=== PATIENT | female | born 1995 | race Caucasian/White ===

== ENCOUNTER 2020-04-01 21:29 | Emergency (ER) | payer BC ==
[~2020-04-01] VITALS: Ht 167.6 cm; Wt 59.0 kg
[2020-04-01 21:56] VITALS: BP 121/87
--- NOTE | 2020-04-01 21:56 | NUR ---
ED Nurse Note: pt ambulated into ed from home CO lower abdominal pain with nausea 10/10 x 3 hours. Pt states she was recently seen at an urgent care earlier today and was instructed to visit an ER d/t lack of equipment at urgent care facility. Pt aao x 4, ambulates with steady gait, skin intact. Pt states she also has mild GORD[place]O. Awaiting ERMD at bedside. UA sent to lab
--- NOTE | 2020-04-01 22:10 | NUR ---
ED Nurse Note: IV line initiated, blood drawn and sent to lab. All medications administered at this time, VSS no ss of distress noted. Will continue to monitor.
--- NOTE | 2020-04-01 22:20 | NUR ---
ED Nurse Note: ERMD at bedside
--- NOTE | 2020-04-01 22:30 | Emergency Room Report ---
History of Present Illness General Chief Complaint: Abdominal Pain Source: Patient Present Illness HPI Disclaimer: Please note that this report is being documented using [employer] technology. This can lead to erroneous entry secondary to incorrect interpretation by the dictating instrument. HPI: 25-year-old female presents for evaluation of nausea and abdominal cramping. Symptoms began approximately 6 hours ago. Denies any new food, vomiting, diarrhea, fever, chills, shortness of breath, cough, sore throat, dysuria, hematuria. She notes mild aching in the lower back. Denies vaginal bleeding or vaginal discharge. LMP 4 days ago. No other coworkers or cohabitant's or experiencing similar symptoms. No prior history of abdominal surgery. Reports a moderate headache but has been ongoing intermittently for the past week. Responds well to NSAIDs. 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 EOMI. Cardiovascular: RRR. S1 and S2 normal. No murmur appreciated Resp: Normal work of breathing. No cough, wheezing or crackles appreciated Abdomen: Abdomen is soft, nondistended. Mild tenderness in the epigastrium without guarding. No significant tenderness in the left or right upper quadrants, negative Samaniego's, no tenderness in the lower quadrants or suprapubic region. No rebound. No flank tenderness. Skin: Intact. No abrasions, laceration or rash over the exposed skin MSK: Normal tone and bulk. Moving all extremities. No obvious deformity. Neuro: Awake and alert. Mentating appropriately. Medical Decision Making Diagnostic Impression: Primary Impression: Abdominal pain ER Course 25-year-old female presents for evaluation of 6 hours abdominal cramping and nausea. Differential includes was not limited to gastritis, gastroenteritis, pancreatitis, cholecystitis, food poisoning, UTI, pyelonephritis among others. Patient has been taking NSAIDs for intermittent headache and may experiencing some gastritis from the excess ibuprofen. EKG unremarkable. Labs returned within normal limits. Patient no longer complaining of abdominal discomfort or nausea. She will be discharged with Zofran and started on famotidine. Counseled her on proper dosing of NSAIDs and she was given Tylenol in the ED. Discussed need to follow-up with clinic and to return to the emergency department new or worsening symptoms. She understands agrees with this treatment plan will be discharged home. Laboratory Tests Test 04/01/20 21:58 04/01/20 22:08 Urine Color Pale yellow Urine Appearance Clear Urine pH 7 (4.5-8.0) Urine Specific [place] 1.010 (1.005-1.035) Urine Protein Negative (NEGATIVE) Urine Glucose (UA) Negative (NEGATIVE) Urine Ketones Negative (NEGATIVE) Urine Blood Negative (NEGATIVE) Urine Nitrite Negative (NEGATIVE) Urine Bilirubin Negative (NEGATIVE) Urine Urobilinogen Normal MG/DL (0.0-1.0) Urine Leukocyte Esterase Negative (NEGATIVE) Urine HCG, Qualitative Negative (NEGATIVE) White Blood Count 9.0 K/UL (4.8-10.8) Red Blood Count 4.51 M/UL (4.20-5.40) Hemoglobin 14.0 G/DL (12.0-16.0) Hematocrit 41.0 % (37.0-47.0) Mean Corpuscular Volume 91 FL (80-99) Mean Corpuscular Hemoglobin 31.0 PG (27.0-31.0) Mean Corpuscular Hemoglobin Concent 34.1 G/DL (32.0-36.0) Red Cell Distribution Width 11.5 % (11.6-14.8) L Platelet Count 392 K/UL (150-450) Mean Platelet Volume 6.5 FL (6.5-10.1) Neutrophils (%) (Auto) 54.0 % (45.0-75.0) Lymphocytes (%) (Auto) 31.2 % (20.0-45.0) Monocytes (%) (Auto) 11.4 % (1.0-10.0) H Eosinophils (%) (Auto) 2.0 % (0.0-3.0) Basophils (%) (Auto) 1.4 % (0.0-2.0) Sodium Level 140 MMOL/L (136-145) Potassium Level 3.7 MMOL/L (3.5-5.1) Chloride Level 105 MMOL/L (98-107) Carbon Dioxide Level 27 MMOL/L (21-32) Anion Gap 8 mmol/L (5-15) Blood Urea Nitrogen 12 mg/dL (7-18) Creatinine 1.0 MG/DL (0.55-1.30) Estimated Glomerular Filtration Rate > 60 mL/min (>60) Glucose Level 93 MG/DL (74-106) Calcium Level 9.4 MG/DL (8.5-10.1) Total Bilirubin 0.3 MG/DL (0.2-1.0) Aspartate Amino Transferase (AST) 21 U/L (15-37) Alanine Aminotransferase (ALT) 38 U/L (12-78) Alkaline Phosphatase 68 U/L (46-116) Troponin I 0.000 ng/mL (0.000-0.056) Total Protein 7.8 G/DL (6.4-8.2) Albumin 4.1 G/DL (3.4-5.0) Globulin 3.7 g/dL Albumin/Globulin Ratio 1.1 (1.0-2.7) Lipase 87 U/L (73-393) EKG Diagnostic Results EKG Time: 22:01 Rate: normal Rhythm: NSR ST Segments: no acute changes Other Impression Sinus rhythm, normal axis, normal intervals, no ST segment changes. Rhythm Strip Diag. Results Rhythm Strip Time: 22:01 EP Interpretation: yes Rate: 80s Rhythm: NSR, no PVC's, no ectopy Last Vital Signs Date Time Temp Pulse Resp B/P (MAP) Pulse Ox O2 Delivery O2 Flow Rate FiO2 04/01/20 21:56 87 19 Room Air 04/01/20 21:56 98.2 121/87 94 Disposition: HOME, SELF-CARE Condition: Improved Scripts Famotidine* (Pepcid 20mg tablet*) 20 Mg Tablet 20 MG ORAL DAILY, #30 TAB 0 Refills Prov: Teddy Buckley MD 04/01/20 Ondansetron Odt* (ZOFRAN ODT*) 4 Mg Tab.rapdis 4 MG BC EVERY 6 HOURS PRN for Nausea & Vomiting, #10 TAB 0 Refills Prov: Teddy Buckley MD 04/01/20 Teddy Buckley MD Apr 01, 2020 22:30
--- NOTE | 2020-04-01 22:41 | NUR ---
ED Nurse Note: all medications administered, pt tolerated well no ss of distress noted. will continue to monitor.
[2020-04-01 22:42] VITALS: BP 118/85
[2020-04-01 22:42] LABS: APPEARANCE,URINE CLEAR; BILIRUBIN, URINE NEGATIVE (NEGATIVE); COLOR,URINE PALE YELLOW; GLUCOSE, URINE (UA) NEGATIVE (NEGATIVE); KETONES,URINE NEGATIVE (NEGATIVE); LEUKOCYTE ESTERASE ,URINE NEGATIVE (NEGATIVE); NITRITE,URINE NEGATIVE (NEGATIVE); PH,URINE 7 (4.5-8.0); PROTEIN,URINE NEGATIVE (NEGATIVE); UROBILINOGEN,URINE NORMAL MG/DL (0.0-1.0)
[2020-04-01] MEDS ORDERED: Ketorolac 30mg Inj IV ONE (22:45)
[2020-04-01 22:48] LABS: BASOPHILS % (AUTO) 1.4 % (0.0-2.0); LYMPHOCYTES % (AUTO) 31.2 % (20.0-45.0); MEAN CORPUSCULAR VOLUME 91 FL (80-99); MONOCYTES % (AUTO) 11.4 % (1.0-10.0); PLATELET COUNT 392 K/UL (150-450); RED BLOOD COUNT 4.51 M/UL (4.20-5.40); RED CELL DISTRIBUTION WIDTH 11.5 % (11.6-14.8)
[2020-04-01 22:52] LABS: ANION GAP 8 mmol/L (5-15); BLOOD UREA NITROGEN 12 mg/dL (7-18); CALCIUM 9.4 MG/DL (8.5-10.1); CARBON DIOXIDE 27 MMOL/L (21-32); CHLORIDE 105 MMOL/L (98-107); POTASSIUM 3.7 MMOL/L (3.5-5.1); SODIUM 140 MMOL/L (136-145)
[2020-04-01 22:56] LABS: ALANINE AMINOTRANSFERASE 38 U/L (12-78); ALBUMIN 4.1 G/DL (3.4-5.0); ALBUMIN/GLOBULIN RATIO 1.1 (1.0-2.7); ALKALINE PHOSPHATASE 68 U/L (46-116); ASPARTATE AMINO TRANSFERASE 21 U/L (15-37); BILIRUBIN,TOTAL 0.3 MG/DL (0.2-1.0)
[2020-04-01] MEDS ORDERED: ONDANSETRON ODT4 MG BC (23:01)
[2020-04-01] MEDS ORDERED: FAMOTIDINE20 MG ORAL (23:01)
--- NOTE | 2020-04-01 23:04 | NUR ---
ED Nurse Note: pt resting comfortably in bed, VSS no ss of distress noted. will continue to monitor.
--- NOTE | 2020-04-01 23:16 | NUR ---
ED Nurse Note: ERMD at bedside
--- NOTE | 2020-04-01 23:22 | NUR ---
ED Nurse Note: all medications administered, pt tolerated well no ss of distress noted. will continue to monitor.
[2020-04-01 23:27] VITALS: BP 105/72
--- NOTE | 2020-04-01 23:27 | NUR ---
ER DISCHARGE NOTE: Patient is cleared to be discharged home per ERMD, pt is aox4, 98% on room air, with stable vital signs. pt was given dc and prescription instructions, pt was able to verbalize understanding, pt id band and iv site removed without complications. pt is able to ambulate with steady gait. pt took all belongings. pt verbalized understanding of discharge instructions.
[2020-04-01] MEDS ORDERED: Acetaminophen 500mg (ES) tab ORAL ONE (23:30)
== END 2020-04-01 23:27 | disposition home or self-care (01) ==
LOC: EMR 22:05
DX: R10.13 Epigastric pain (principal)
CPT/HCPCS: 36415; 80053; 81003; 81025; 83690; 84484; 85025; 93005; 96361; 96374; 96375; 99284; J1885; J2405; J7030; S0028